=== PATIENT | female | born 1950 | race Caucasian/White ===

== ENCOUNTER 2023-06-28 14:37 | Outpatient (CLI) | payer OTHER | END 2023-06-29 09:13 | disposition home or self-care (01) | LOC: MRI 14:37 → EDBD 14:37 → MRI 06-29 09:13 | PROVIDERS: ATTEND Orthopaedic Surgery | DX: S83.200A Bucket-handle tear of unspecified meniscus, current injury, right knee, initial encounter (principal); M25.561 Pain in right knee; M25.562 Pain in left knee | CPT/HCPCS: 73721 ==